=== PATIENT | male | born 1985 | race Caucasian/White ===

== ENCOUNTER 2017-10-19 09:16 | Emergency (ER) | payer OTHER ==
[~2017-10-19] VITALS: Ht 188 cm; Wt 117.9 kg
[~2017-10-19 09:16] MED LIST: IBUPROFEN400 MG PO; ULTRAM50 MG PO
[2017-10-19 09:35] LABS: HEMOGLOBIN 15.3 g/dL (14.1-18.0); LYMPH # 2.5 K/mm3 (0.7-4.5); LYMPH % 40.5 % (10-50)
--- NOTE | 2017-10-19 09:39 | Emergency Room Report ---
See Addendum History of Present Illness Time Seen by MD Bass24 Presenting Problem in Triage Pt arrived:Walked Presenting Problem:PT C/O LEFT FLANK PAIN THAT STARTED AROUND 0200AM. 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 N Clinical Suspician of Infection? N Mental Status: 1 - Regular (Normal Baseline) Sepsis Risk:Low Sepsis Risk Have you (or family members/close friends) recently traveled outside the [facility]? N If Yes, where/when: Have you had exposure to infectious disease within the past month? N TB? Other? 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 Reports acute onset of intermittent right flank pain plus "pinkish urine" since 0200 this AM. No fever, no n/v/d. Took two Ibuprofen earlier with minimal relief. States his dad had hx of calculi. He doesn't drink a lot of caffeine but drinks "flavored water". He is requesting pain relief. ALLERGIES Coded Allergies: No Known Allergies (10/19/17) Home Medications Reported Medications No Known Home Medications History Medical History General CAD? No Angina: No [place]: No Hypertension? No Hyperlipidemia? No CHF? No DVT? No PE? No COPD? No Asthma? No Anemia? No GERD? No Gastric ulcers? No GI Bleed? No Hernia? No Thyroid Problems? No Hypothyroidism? No CVA? No Seizures? No Diabetes? No Renal Insuffiency? No End Stage Renal Disease? No UTI? No Stones? No BPH? No GB Disease: No Nephritic Syndrome? No Asplenia? No Hepatitis? No Sickle Cell Disease? No Arthritis? No Migraines? No Cataracts? No Glaucoma? No MRSA? No HIV? No TB? No Anxiety? No Depression? No Cancer? No More? No Immunization Hx DT/Tetanus Unknown Surgical Hx Previous Surgery?Y RT KNEE TONSILS Social History Smoking Hx Smoker: Never Smoker Tobacco: No Alcohol Alcohol: No Review of Systems All Other Systems Reviewed and Negative Genitourinary see HPI. Physical Exam Vital Signs Vital Signs Date Time Temp Pulse Resp B/P Pulse O2 O2 Flow FiO2 Ox Delivery Rate 10/19 0934 16 10/19 0920 98.0 71 16 162/83 98 General Appearance normal appearance, WD/WN, no apparent distress (lying still on stretcher) Eye Exam - bilateral eye normal exam, bilateral eye PERRL, bilateral eye EOMI Neck normal inspection, non-tender, supple, full range of motion Respiratory Status Yes: trachea midline, chest symmetrical, non tender chest. No: respiratory distress, tender on palpation, use of accessory muscles, pain on inspiration, pain on expiration, productive cough, non productive cough. Lung Sounds bilateral: normal breath sounds, lungs clear. Cardiovascular normal exam, regular rate/rhythm, no peripheral edema, no gallop, no JVD, no murmur, no rub, normal peripheral pulses Gastrointestinal normal bowel sounds, normal exam, non tender, soft, no organomegaly, no pulsatile mass, no guarding, no rebound Back no CVA tenderness, bowel/bladder continent, gait normal, strt leg raising(L )-NML, strt leg raising(R)-NML Extremities non-tender, normal range of motion, normal inspection, normal capillary refill, no calf tenderness, no pedal edema Strength 5 Upper Ext (L), 5 Upper Ext (R), 5 Lower Ext (L), 5 Lower Ext (R) Neurologic alert, normal exam, no motor/sensory deficits, oriented x 3 Glascow Coma Scale Glascow Coma Scale Response Value EYE response: 4 Spontaneously 4 MOTOR response: 6 OBEYS 6 VERBAL response: 5 Oriented & Converses 5 Total 15 Skin intact, normal color, warm/dry, no rash cons.w/shingles Medical Decision Making LABS/Meds/Orders Pt receiving controlled substance in ED? Yes Walker was queried for this patient? Yes Reference #: [id number] Results/Orders Laboratory Tests 10/19/17 0935: Urine Color DK YELLOW, Urine Appearance CLOUDY, Urine pH 6.0, Ur Specific [place] >= 1.030, Urine Protein 1+ H, Urine Ketones NEGATIVE, Urine Blood 3+ H , Urine Nitrate NEGATIVE, Urine Bilirubin NEGATIVE, Urine Urobilinogen 0.2, Ur Leukocyte Esterase NEGATIVE, Urine RBC TNTC, Urine WBC OCC, Ur Squamous Epith Cells OCC, Urine Bacteria 2+, Urine Glucose NEGATIVE 10/19/1728: Sodium 141, Potassium 3.9, Chloride 106, Carbon Dioxide 25, BUN 8, Creatinine 1.1, Estimated Creat Clear 161, Estimated GFR (MDRD) 78, Glucose 101, Calcium 9.3, Total Bilirubin 0.5, AST 42 H, ALT 85 H, Alkaline Phosphatase 52, Total Protein 7.8, Albumin 4.1, Globulin 3.7 H, Albumin/Globulin Ratio 1.1, WBC 6.2, RBC 5.01, Hgb 15.3, Hct 43.7, MCV 87.2, RDW 13.3, Plt Count 248, MPV 6.7 L, Gran % 49.5, Gran # 3.1, Lymphocytes % 40.5, Monocytes % 6.2, Eosinophils % 3.1, Basophils % 0.8, Lymphocytes # 2.5, Monocytes # 0.4, Eosinophils # 0.2, Basophils # 0.1, PUBS MCHC 35.0, MCH 30.5 Current Medication Orders Sig/Stephen Start time Last Medication Dose Route Stop Time Status Admin Morphine Sulfate 4 MG ONCE ONE 10/19 1115 DC IV 10/19 1116 Ketorolac 0 .STK-MED ONE 10/19 931 DC Tromethamine .ROUTE Ondansetron HCl 0 .STK-MED ONE 10/19 931 DC .ROUTE Ketorolac 15 MG ONCE ONE 10/19 930 DC 10/19 Tromethamine IV 10/1934 Ondansetron HCl 4 MG ONCE ONE 10/19 930 DC 10/19 IV 10/19 931 0934 Sodium Chloride 10 ML PRN PRN 10/19 930 AC IV 10/20 924 Sodium Chloride 1,000 ML .Q1H1M 10/19 930 DC 10/19 IV 10/19 1030 0928 Sodium Chloride 10 ML PRN PRN 10/19 930 AC IV 10/20 09 Sodium Chloride 1,000 ML .STK-MED ONE 10/19 926 DC IV Orders Procedure Date/time Status DIET-NOTHING BY MOUTH 10/19 L Active CULTURE, URINE 10/[address] ABD/PELVIS REQ 10/19 924 Complete IV SALINE LOCK 10/19 924 Active URINALYSIS/COMPLETE 10/19 924 Complete CBC WITH AUTO DIFF 10/19 924 Complete CHEM 12 PROFILE 11/30 0924 Complete XRAY/CT/US XRAY/CT/US CT abdomen, pelvis CT interpretation by reviewed by me (report reviewed) Time results known: 1101 CT Results abnormal, 2-3 mm R ureteral calc w/ mild uropathy Departure Departure Time of Disposition 1101 Disposition DC Home or Self Care(routine) Clinical Impression Primary Impression: Right ureteral stone Condition STABLE Referrals Katt GRAY,Leonardo Sanderson MD,Arsenio Lerner MD,Michael (Family) Patient Instructions Kidney Stones -- Adult Additional Instructions filter urine; Rx Flomax, Lortab, Zofran; make an appointment for one to four days with urologist of choice, either Dr. Bolivar or Dr. Sanderson, see numbers listed. Discharge Counseling Counseled pt/family regarding diagnosis, test results, R/B of controlled subst., medications/RX, home care, follow up needs Prescriptions Current Visit Scripts Ondansetron (Zofran 4MG Odt) 4 MG PO Q6HP PRN NAUSEA AND VOMITING #10 ODT TAMSULOSIN HCL (Flomax) 0.4 MG PO QHS #10 CAP HYDROCODONE/ACETAMINOPHEN (Lortab 10-325 (generic) Tablet) 2 TAB PO Q6HP PRN pain #20 TAB ED Critical Care Critical Care No at 1116
--- NOTE | 2017-10-19 09:39 | Emergency Room Report ---
See Addendum History of Present Illness Time Seen by MD Bass24 Presenting Problem in Triage Pt arrived:Walked Presenting Problem:PT C/O LEFT FLANK PAIN THAT STARTED AROUND 0200AM. 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 N Clinical Suspician of Infection? N Mental Status: 1 - Regular (Normal Baseline) Sepsis Risk:Low Sepsis Risk Have you (or family members/close friends) recently traveled outside the [facility]? N If Yes, where/when: Have you had exposure to infectious disease within the past month? N TB? Other? 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 Reports acute onset of intermittent right flank pain plus "pinkish urine" since 0200 this AM. No fever, no n/v/d. Took two Ibuprofen earlier with minimal relief. States his dad had hx of calculi. He doesn't drink a lot of caffeine but drinks "flavored water". He is requesting pain relief. ALLERGIES Coded Allergies: No Known Allergies (10/19/17) Home Medications Reported Medications No Known Home Medications History Medical History General CAD? No Angina: No [place]: No Hypertension? No Hyperlipidemia? No CHF? No DVT? No PE? No COPD? No Asthma? No Anemia? No GERD? No Gastric ulcers? No GI Bleed? No Hernia? No Thyroid Problems? No Hypothyroidism? No CVA? No Seizures? No Diabetes? No Renal Insuffiency? No End Stage Renal Disease? No UTI? No Stones? No BPH? No GB Disease: No Nephritic Syndrome? No Asplenia? No Hepatitis? No Sickle Cell Disease? No Arthritis? No Migraines? No Cataracts? No Glaucoma? No MRSA? No HIV? No TB? No Anxiety? No Depression? No Cancer? No More? No Immunization Hx DT/Tetanus Unknown Surgical Hx Previous Surgery?Y RT KNEE TONSILS Social History Smoking Hx Smoker: Never Smoker Tobacco: No Alcohol Alcohol: No Review of Systems All Other Systems Reviewed and Negative Genitourinary see HPI. Physical Exam Vital Signs Vital Signs Date Time Temp Pulse Resp B/P Pulse O2 O2 Flow FiO2 Ox Delivery Rate 10/19 0934 16 10/19 0920 98.0 71 16 162/83 98 General Appearance normal appearance, WD/WN, no apparent distress (lying still on stretcher) Eye Exam - bilateral eye normal exam, bilateral eye PERRL, bilateral eye EOMI Neck normal inspection, non-tender, supple, full range of motion Respiratory Status Yes: trachea midline, chest symmetrical, non tender chest. No: respiratory distress, tender on palpation, use of accessory muscles, pain on inspiration, pain on expiration, productive cough, non productive cough. Lung Sounds bilateral: normal breath sounds, lungs clear. Cardiovascular normal exam, regular rate/rhythm, no peripheral edema, no gallop, no JVD, no murmur, no rub, normal peripheral pulses Gastrointestinal normal bowel sounds, normal exam, non tender, soft, no organomegaly, no pulsatile mass, no guarding, no rebound Back no CVA tenderness, bowel/bladder continent, gait normal, strt leg raising(L )-NML, strt leg raising(R)-NML Extremities non-tender, normal range of motion, normal inspection, normal capillary refill, no calf tenderness, no pedal edema Strength 5 Upper Ext (L), 5 Upper Ext (R), 5 Lower Ext (L), 5 Lower Ext (R) Neurologic alert, normal exam, no motor/sensory deficits, oriented x 3 Glascow Coma Scale Glascow Coma Scale Response Value EYE response: 4 Spontaneously 4 MOTOR response: 6 OBEYS 6 VERBAL response: 5 Oriented & Converses 5 Total 15 Skin intact, normal color, warm/dry, no rash cons.w/shingles Medical Decision Making LABS/Meds/Orders Pt receiving controlled substance in ED? Yes Walker was queried for this patient? Yes Reference #: [id number] Results/Orders Laboratory Tests 10/19/17 0935: Urine Color DK YELLOW, Urine Appearance CLOUDY, Urine pH 6.0, Ur Specific [place] >= 1.030, Urine Protein 1+ H, Urine Ketones NEGATIVE, Urine Blood 3+ H , Urine Nitrate NEGATIVE, Urine Bilirubin NEGATIVE, Urine Urobilinogen 0.2, Ur Leukocyte Esterase NEGATIVE, Urine RBC TNTC, Urine WBC OCC, Ur Squamous Epith Cells OCC, Urine Bacteria 2+, Urine Glucose NEGATIVE 10/19/1728: Sodium 141, Potassium 3.9, Chloride 106, Carbon Dioxide 25, BUN 8, Creatinine 1.1, Estimated Creat Clear 161, Estimated GFR (MDRD) 78, Glucose 101, Calcium 9.3, Total Bilirubin 0.5, AST 42 H, ALT 85 H, Alkaline Phosphatase 52, Total Protein 7.8, Albumin 4.1, Globulin 3.7 H, Albumin/Globulin Ratio 1.1, WBC 6.2, RBC 5.01, Hgb 15.3, Hct 43.7, MCV 87.2, RDW 13.3, Plt Count 248, MPV 6.7 L, Gran % 49.5, Gran # 3.1, Lymphocytes % 40.5, Monocytes % 6.2, Eosinophils % 3.1, Basophils % 0.8, Lymphocytes # 2.5, Monocytes # 0.4, Eosinophils # 0.2, Basophils # 0.1, PUBS MCHC 35.0, MCH 30.5 Current Medication Orders Sig/Stephen Start time Last Medication Dose Route Stop Time Status Admin Morphine Sulfate 4 MG ONCE ONE 10/19 1115 DC IV 10/19 1116 Ketorolac 0 .STK-MED ONE 10/19 931 DC Tromethamine .ROUTE Ondansetron HCl 0 .STK-MED ONE 10/19 931 DC .ROUTE Ketorolac 15 MG ONCE ONE 10/19 930 DC 10/19 Tromethamine IV 10/1934 Ondansetron HCl 4 MG ONCE ONE 10/19 930 DC 10/19 IV 10/19 931 0934 Sodium Chloride 10 ML PRN PRN 10/19 930 AC IV 10/20 924 Sodium Chloride 1,000 ML .Q1H1M 10/19 930 DC 10/19 IV 10/19 1030 0928 Sodium Chloride 10 ML PRN PRN 10/19 930 AC IV 10/20 09 Sodium Chloride 1,000 ML .STK-MED ONE 10/19 926 DC IV Orders Procedure Date/time Status DIET-NOTHING BY MOUTH 10/19 L Active CULTURE, URINE 10/[address] ABD/PELVIS REQ 10/19 924 Complete IV SALINE LOCK 10/19 924 Active URINALYSIS/COMPLETE 10/19 924 Complete CBC WITH AUTO DIFF 10/19 924 Complete CHEM 12 PROFILE 11/30 0924 Complete XRAY/CT/US XRAY/CT/US CT abdomen, pelvis CT interpretation by reviewed by me (report reviewed) Time results known: 1101 CT Results abnormal, 2-3 mm R ureteral calc w/ mild uropathy Departure Departure Time of Disposition 1101 Disposition DC Home or Self Care(routine) Clinical Impression Primary Impression: Right ureteral stone Condition STABLE Referrals Katt GRAY,Leonardo Sanderson MD,Arsenio Lenrer MD,Michael (Family) Patient Instructions Kidney Stones -- Adult Additional Instructions filter urine; Rx Flomax, Lortab, Zofran; make an appointment for one to four days with urologist of choice, either Dr. Bolivar or Dr. Sanderson, see numbers listed. Discharge Counseling Counseled pt/family regarding diagnosis, test results, R/B of controlled subst., medications/RX, home care, follow up needs Prescriptions Current Visit Scripts Ondansetron (Zofran 4MG Odt) 4 MG PO Q6HP PRN NAUSEA AND VOMITING #10 ODT TAMSULOSIN HCL (Flomax) 0.4 MG PO QHS #10 CAP HYDROCODONE/ACETAMINOPHEN (Lortab 10-325 (generic) Tablet) 2 TAB PO Q6HP PRN pain #20 TAB ED Critical Care Critical Care No at 1116
--- OUTSIDE RECORDS SUMMARY | 2017-10-19 10:04 | External Medical Summary Rpt ---
Author Author [facility] Organization [facility] Address Unknown Phone Unavailable Care Team Providers Care Hatchery Attendant Name Role Phone PHY, UNKNOWN PCP Unavailable Encounter [facility] [id number] Date(s): 08/22/16 - 08/22/16 [facility] [address] [place] [place] [address]- Attending Physician: HANNAH BRUNNER MD Admitting Physician: HANNAH BRUNNER MD Referring Physician: HANNAH BRUNNER MD Reason for Visit CALCULUS OF URETER Vital Signs No data available for this section Problem List Condition Effective Status Health Informant Dates Status asthma as a Active child(Confir med) Kidney Active stones(Confi rmed) KNEE Active SX(Confirmed ) Allergies, Adverse Reactions, Alerts No Known Medication Allergies Medications No data available for this section Results No data available for this section Immunizations No data available for this section Procedures No data available for this section Social History Social History Response Type Smoking Status Never smoker Assessment and Plan No data available for this section Hospital Discharge Instructions No data available for this section
--- OUTSIDE RECORDS SUMMARY | 2017-10-19 10:04 | External Medical Summary Rpt ---
Author Author [facility] Organization [facility] Address Unknown Phone Unavailable Care Team Providers Care Quality Compliance Manager Name Role Phone PHY, UNKNOWN PCP Unavailable Encounter [facility]MI [facility] [id number] Date(s): 08/22/16 - 08/22/16 [facility] [address] [place] [address]- Discharge Disposition: OP Self Care or Home Attending Physician: HANNAH BRUNNER MD Admitting Physician: [...]
--- OUTSIDE RECORDS SUMMARY | 2017-10-19 10:04 | External Medical Summary Rpt ---
Author Author [facility] Organization [facility] Address Unknown Phone Unavailable Care Team Providers Care Cloth Checker Name Role Phone MAXIMUS, MD PCP Unavailable Encounter SAMMI [facility] [id number] Date(s): 08/05/16 - 08/05/16 [facility] [address] [place] [address]- [phone] Discharge Diagnosis: Right flank pain Discharge Diagnosis: Kidney stone Discharge Diagnosis: Dysuria Discharge Disposition: OP Self Care or Home Attending Physician: CHRISTIAN WEBB MD Admitting Physician: CHRISTIAN WEBB MD Referring Physician: SELF, REFERRED (REF), -UNK Reason for Visit KIDNEY STONE Vital Signs Most recent 1 to oldest [Reference Range]: Temperature Oral Source (08/05/16 10:52 AM) Temperature Fahrenheit Mode (08/05/16 10:52 AM) Temperature, 98.3 Deg F Fahrenheit (08/05/16 10:52 AM) [96.8-99.7 Deg F] Clinical 36.8 Deg C Temperature, (08/05/16 10:52 AM) C Peripheral 72 bpm Pulse Rate (08/05/16 10:52 AM) [60-100 bpm] Respiratory 18 Breaths/Min Rate [14-20 (08/05/16 10:52 AM) Breaths/Min] Blood 141/66 mmHg Pressure *HI* [90-140/60-9 (08/05/16 10:52 AM) 0 mmHg] Oxygen 96 % Saturation (08/05/16 10:52 AM) [94-100 %] Oxygen Room air Therapy Mode (08/05/16 10:52 AM) Problem List Condition Effective Status Health Informant Dates Status Kidney Active stones(Confi rmed) KNEE Active SX(Confirmed ) Allergies, Adverse Reactions, Alerts No Known Medication Allergies Medications acetaminophen-oxyCODONE (Percocet 5/325 oral tablet)1 Tab, Oral, Every 6 Hours, 5 Day(s), As Needed, for pain, Refills: 0Ordering provider: CHRISTIAN WEBB MD ondansetron (Zofran ODT 4 mg oral tablet, disintegrating)1 Tab, Oral, Every 6 Hours, Refills: 0Ordering provider: LARRY ABURTO PA-C tamsulosin (Flomax 0.4 mg oral capsule)1 Cap, Oral, Every Day, Refills: 0Ordering provider: LARRY ABURTO PA-C Results GENERAL CHEMISTRY Most recent 1 to oldest [Reference Range]: Sodium Level 140 mmol/L [136-145 (08/05/16 11:48 AM) mmol/L] Potassium 3.8 mmol/L Level (08/05/16 11:48 AM) [3.5-5.1 mmol/L] Chloride 105 mmol/L Level (08/05/16 11:48 AM) [98-107 mmol/L] Carbon 26 mmol/L Dioxide (08/05/16 11:48 AM) Level [21-32 mmol/L] Anion Gap 13 [9-20] (08/05/16 11:48 AM) Glucose 122 mg/dL Level *HI* [74-106 (08/05/16 11:48 AM) mg/dL] Blood Urea 13 mg/dL Nitrogen (08/05/16 11:48 AM) [7-18 mg/dL] Creatinine 1.10 mg/dL Level (08/05/16 11:48 AM) [0.80-1.30 mg/dL] eGFR 95 mL/min/1.73m2 [>=60 (08/05/16 11:48 AM) mL/min/1.73m 2] eGFR 78 mL/min/1.73m2 NonAfrican (08/05/16 11:48 AM) [>=60 mL/min/1.73m 2] Bun/Creatini 11.8 ne (08/05/16 11:48 AM) [8.0-20.0] Calcium 9.6 mg/dL Level (08/05/16 11:48 AM) [8.5-10.1 mg/dL] Protein 7.7 Gram/dL Total (08/05/16 11:48 AM) [6.4-8.5 Gram/dL] Albumin 4.2 Gram/dL Level (08/05/16 11:48 AM) [3.4-5.0 Gram/dL] Globulin 3.5 Gram/dL [1.5-4.5 (08/05/16 11:48 AM) Gram/dL] A/G Ratio 1.2 [1.1-2.5] (08/05/16 11:48 AM) Bilirubin 0.4 mg/dL Total (08/05/16 11:48 AM) [0.2-1.0 mg/dL] Alk Phos 44 Units/Liter [46-116 *LOW* Units/Liter] (08/05/16 11:48 AM) AST [15-37 31 Units/Liter Units/Liter] (08/05/16 11:48 AM) ALT [12-78 66 Units/Liter Units/Liter] (08/05/16 11:48 AM) Lipase Level 128 Units/Liter [73-393 (08/05/16 11:48 AM) Units/Liter] CRP [0.0-0.9 <0.2 mg/dL mg/dL] (08/05/16 12:20 PM) Uric Acid 7.1 mg/dL [3.5-7.2 (08/05/16 12:20 PM) mg/dL] HEMATOLOGY Most recent 1 to oldest [Reference Range]: WBC 6.4 K/uL [3.9-10.0 (08/05/16 11:48 AM) K/uL] RBC 4.79 Million/uL [4.63-6.08 (08/05/16 11:48 AM) Million/uL] Hgb 14.9 Gram/dL [13.7-17.5 (08/05/16 11:48 AM) Gram/dL] Hct [37-51 41 % %] (08/05/16 12:20 PM) Hct 40.9 % [40.1-51.0 (08/05/16 11:48 AM) %] MCV 85.4 fL [79.0-94.8 (08/05/16 11:48 AM) fL] MCH 31.1 pg [25.6-32.2 (08/05/16 11:48 AM) pg] MCHC 36.4 Gram/dL [32.2-36.5 (08/05/16 11:48 AM) Gram/dL] Platelet 208 K/uL Count (08/05/16 11:48 AM) [163-369 K/uL] MPV 9.1 fL [9.4-12.4 *LOW* fL] (08/05/16 11:48 AM) RDW 12.7 % [11.6-14.4 (08/05/16 11:48 AM) %] Neut % 52.0 % [34.0-71.0 (08/05/16 11:48 AM) %] Neut # 3.35 K/uL [1.56-6.13 (08/05/16 11:48 AM) K/uL] Lymph % 36.6 % [19.0-53.0 (08/05/16 11:48 AM) %] Lymph # 2.36 K/uL [1.18-3.74 (08/05/16 11:48 AM) K/uL] [place] % 8.1 % [4.7-12.5 %] (08/05/16 11:48 AM) [place] # 0.52 K/uL [0.24-0.82 (08/05/16 11:48 AM) K/uL] Eos % 2.8 % [1.0-7.0 %] (08/05/16 11:48 AM) Eos # 0.18 K/uL [0.04-0.54 (08/05/16 11:48 AM) K/uL] Baso % 0.5 % [0.0-1.0 %] (08/05/16 11:48 AM) Baso # 0.03 K/uL [0.01-0.08 (08/05/16 11:48 AM) K/uL] Sed Rate Man 3 mm/Hr [0-15 (08/05/16 12:20 PM) mm/Hr] Slide Review No (08/05/16 11:48 AM) URINALYSIS Most recent 1 to oldest [Reference Range]: Urine Type U CleanCatch (08/05/16 1:02 PM) Urine Color Yellow *NA* (08/05/16 1:02 PM) Urine Clear Appearance (08/05/16 1:02 PM) Urine 1.017 Specific (08/05/16 1:02 PM) [place] [1.005-1.030 ] Urine pH 6.0 Dipstick (08/05/16 1:02 PM) [6.0-8.0] Urine Negative Leukocyte (08/05/16 1:02 PM) Esterase [Negative] Urine Negative Nitrite (08/05/16 1:02 PM) [Negative] Urine Negative Protein (08/05/16 1:02 PM) Dipstick [Negative] Urine Negative Glucose (08/05/16 1:02 PM) Dipstick [Negative] Urine Negative Ketones (08/05/16 1:02 PM) Dipstick [Negative] Urine 0.2 EU/dL Urobilinogen (08/05/16 1:02 PM) Dipstick Urine Negative Bilirubin (08/05/16 1:02 PM) Dipstick [Negative] Urine Blood Large Dipstick *ABN* [Negative] (08/05/16 1:02 PM) Ur RBC [None 50-100 /HPF Seen /HPF] *ABN* (08/05/16 1:02 PM) Ur WBC [None 0-2 /HPF Seen /HPF] (08/05/16 1:02 PM) Ur Bacteria None Seen [None Seen] (08/05/16 1:02 PM) Ur Mucous 3+ *ABN* (08/05/16 1:02 PM) Ur Squamous 0-2 /HPF Epithelial (08/05/16 1:02 PM) Cells LAB MISCELLANEOUS Most recent 1 to oldest [Reference Range]: MISC Test ANAESN Name *NA* (08/05/16 12:20 PM) Performing [facility] Lab *NA* (08/05/16 12:20 PM) Immunizations No data available for this section Procedures No data available for this section Social History Social History Response Type Smoking Status Never smoker Assessment and Plan No data available for this section Hospital Discharge Instructions Patient EducationKidney Stones
--- OUTSIDE RECORDS SUMMARY | 2017-10-19 10:04 | External Medical Summary Rpt ---
Author Author [facility] Organization [facility] Address Unknown Phone Unavailable Care Team Providers Care Student Financial Aid Manager Name Role Phone PHY, UNKNOWN PCP Unavailable Encounter [facility]MI [facility] [id number] Date(s): 08/22/16 - 08/22/16 [facility] [address] [place] [address]- Discharge Disposition: OP Self Care or Home [...]
--- OUTSIDE RECORDS SUMMARY | 2017-10-19 10:04 | External Medical Summary Rpt ---
Author Author [facility] Organization [facility] Address Unknown Phone Unavailable Care Team Providers Care Acid Tester Name Role Phone SOCO, MAXIMUS CORRAL DR PCP Unavailable Encounter Charlie [facility] [id number] Date(s): 08/08/16 - 08/10/16 [facility] [address] [place] [address]- [phone] Discharge Disposition: OP Self Care or Home Attending Physician: HANNAH BRUNNER MD Admitting Physician: HANNAH BRUNNER MD Referring Physician: HANNAH BRUNNER MD Reason for Visit CALCULUS OF URETER Vital Signs Most recent 1 2 3 to oldest [Reference Range]: Temperature Temporal artery Temporal artery Temporal artery Source scanning (08/10/16 scanning (08/10/16 scanning (08/10/16 1:41 PM) 12:05 PM) 11:21 AM) Temperature Fahrenheit Fahrenheit Fahrenheit Mode (08/10/16 1:41 PM) (08/10/16 12:05 (08/10/16 11:21 PM) AM) Temperature, 97.0 Deg F 97.9 Deg F 97.5 Deg F Fahrenheit (08/10/16 1:41 PM) (08/10/16 12:05 (08/10/16 11:21 [96.8-99.7 PM) AM) Deg F] Clinical 36.1 Deg C 36.8 Deg C Temperature, (08/10/16 1:41 PM) (08/10/16 8:38 AM) C Pulse Rhythm Regular (08/10/16 8:38 AM) Peripheral 84 bpm Pulse Rate (08/10/16 8:38 AM) [60-100 bpm] Heart Rate 72 bpm 73 bpm 67 bpm Monitored (08/10/16 1:41 PM) (08/10/16 1:30 PM) (08/10/16 1:00 PM) [60-100 bpm] Respiratory 16 Breaths/Min 17 Breaths/Min 16 Breaths/Min Rate [14-20 (08/10/16 1:41 PM) (08/10/16 1:30 PM) (08/10/16 1:00 PM) Breaths/Min] Blood Non-Invasive BP Pressure Device (08/10/16 Source 8:38 AM) Blood 119/80 mmHg 125/74 mmHg 127/77 mmHg Pressure (08/10/16 1:41 PM) (08/10/16 1:30 PM) (08/10/16 1:00 PM) [90-140/60-9 0 mmHg] Mean 88 88 (08/10/16 12:45 88 (08/10/16 12:25 Arterial (08/10/16 1:30 PM) PM) PM) Pressure (MAP)-BMDI Oxygen 94 % 93 % 93 % Saturation (08/10/16 1:41 PM) *LOW* *LOW* [94-100 %] (08/10/16 1:30 PM) (08/10/16 1:00 PM) Oxygen Room air Room air, Room air, Therapy Mode (08/10/16 1:41 PM) Other: Other: (08/10/16 1:30 PM) (08/10/16 1:00 PM) Problem List Condition Effective Status Health Informant Dates Status asthma as a Active child(Confir med) Kidney Active stones(Confi rmed) KNEE Active SX(Confirmed ) Allergies, Adverse Reactions, Alerts No Known Medication Allergies Medications No data available for this section Results No data available for this section Immunizations No data available for this section Procedures Procedure Date Related Body Site Diagnosis right knee acl repair Social History Social History Response Type Smoking Status Never smoker Assessment and Plan No data available for this section Hospital Discharge Instructions No data available for this section
--- OUTSIDE RECORDS SUMMARY | 2017-10-19 10:04 | External Medical Summary Rpt ---
Author Author Charlie [facility] Organization [facility] Address Unknown Phone Unavailable Care Team Providers Care Satellite Instruction Facilitator Name Role Phone MAXIMUS, MD PCP Unavailable Encounter SAMMI [facility] [id number] Date(s): 08/05/16 - 08/05/16 [facility] [address] [place] [address]- Discharge Diagnosis: Right flank pain Discharge Diagnosis: [...] 2.36 K/uL [1.18-3.74 (08/05/16 11:48 AM) K/uL] Holmes % 8.1 % [4.7-12.5 %] (08/05/16 11:48 AM) Holmes # 0.52 K/uL [0.24-0.82 (08/05/16 11:48 AM) [...] PM) Urine 1.017 Specific (08/05/16 1:02 PM) [facility] [1.005-1.030 ] Urine pH 6.0 Dipstick (08/05/16 [...]
--- OUTSIDE RECORDS SUMMARY | 2017-10-19 10:04 | External Medical Summary Rpt ---
Author Author Charlie [facility] Organization [facility] Address Unknown Phone Unavailable Care Team Providers Care Computer Repair Instructor Name Role Phone Kathy SARKAR PCP [phone] Encounter SAMMI CURTIS [id number] Date(s): 09/26/16 - 09/26/16 [facility] [address] [place] [address]- [phone] Discharge Disposition: OP Self Care or Home Attending Physician: HANNAH BRUNNER MD Admitting Physician: HANNAH BRUNNER MD Referring Physician: HANNAH BRUNNER MD Reason for Visit No data available for this section Vital Signs No data available for this [...]
--- OUTSIDE RECORDS SUMMARY | 2017-10-19 10:04 | External Medical Summary Rpt ---
Author Author [facility] Organization [facility] Address Unknown Phone Unavailable Care Team Providers Care Rehabilitation Physician Name Role Phone PHY, UNKNOWN PCP Unavailable Encounter [facility] [id number] Date(s): 08/22/16 - 08/22/16 [facility] [address] [place] [address]- Attending Physician: HANNAH BRUNNER MD Admitting Physician: [...]
--- OUTSIDE RECORDS SUMMARY | 2017-10-19 10:04 | External Medical Summary Rpt ---
Author Author Charlie [facility] Organization [facility] Address Unknown Phone Unavailable Care Team Providers Care Irrigation Worker Name Role Phone Kathy SARKAR PCP [phone] Encounter SAMMI CURTIS [id number] Date(s): 09/26/16 - 09/26/16 [facility] [address] [place] [address]- Discharge Disposition: OP Self Care or Home [...]
--- OUTSIDE RECORDS SUMMARY | 2017-10-19 10:04 | External Medical Summary Rpt ---
Author Author [facility] Organization [facility] Address Unknown Phone Unavailable Care Team Providers Care Electrical Maintenance Worker Name Role Phone SOCO, MAXIMUS CORRAL DR PCP Unavailable Encounter Charlie [facility] [id number] Date(s): 08/08/16 - 08/10/16 [facility] [address] [place] [address]- [phone] Discharge Disposition: OP Self Care or Home [...]
--- OUTSIDE RECORDS SUMMARY | 2017-10-19 10:05 | External Medical Summary Rpt | CCD ---
Author Author [facility] Organization [facility] Address Unknown Phone Unavailable Purpose Continuity of Care Document - through 2016
--- OUTSIDE RECORDS SUMMARY | 2017-10-19 10:05 | External Medical Summary Rpt | CCD ---
Demographics Preferred Language [place]ine[place] Marital Status Unknown Latter Day Affiliation Unknown Race Unknown Ethnic Group Unknown Author Author , NANCY CRUZ Address Unknown Phone Immunization No patient found.
--- OUTSIDE RECORDS SUMMARY | 2017-10-19 10:05 | External Medical Summary Rpt | CCD ---
Author Author , NANCY Organization [facility] Address Unknown Phone [email or web address] Purpose Continuity of Care Document - 10-19-2017 through 2016 Problems Code Diagnosis DOS Provider Status R10.9 UNSPECIFIED ABDOMINAL PAIN S20.219A CONTUSION OF UNSPECIFIED FRONT WALL OF THORAX, INIT ENCNTR Z87.442 PERSONAL HISTORY OF URINARY CALCULI Results Labs Lab Lab Date Result Refere Interp Status Commen Order Detail nces retati t Range on CBC w auto diff (10-19-2017 09:28) Automat 2 = 0.1 0-0.2 complet ed 017 K/MM3 ed blood 09:28 basophi l count (count/ vo Baso % = 0.8 % 0.1-2.0 complet 017 ed 09:28 Automat = 3.1 % 0.1-12. complet ed 017 0 ed blood 09:28 eosinop hils/10 0 leukocy t Blood = 3.1 1.3-8.0 complet granulo 017 K/mm3 ed cytes 09:28 automat ed count (numb Granulo = 49.5 37.0-80 complet cyte 017 % .0 ed percent 09:28 age Blood = 43.7 42.0-52 complet hematoc 017 % .0 ed rit 09:28 (volume fractio n) Blood = 15.3 14.1-18 complet hemoglo 017 g/dL .0 ed bin 09:28 measure ment (mass/v olum Absolut = 2.5 0.7-4.5 complet e 017 K/mm3 ed lymphoc 09:28 yte count Lymphoc = 40.5 10-50 complet yte 017 % ed count, 09:28 blood, automat ed Mean = 30.5 27-31.2 complet corpusc 017 pg ed ular 09:28 hemoglo bin ([facility]) determ Automat 10-19-2 = 35.0 31.8-35 complet ed 017 g/dl .4 ed erythro 09:28 cyte mean corpusc ular h Automat 10-19-2 = 87.2 82.2-97 complet ed 017 fl .8 ed erythro 09:28 cyte mean corpusc ular v Absolut 10-19-2 = 0.4 0.1-1.0 complet e 017 K/mm3 ed monocyt 09:28 e count L[place] % 10-19-2 = 6.2 % 1.7-9.3 complet 017 ed 09:28 Automat 10-19-2 = 6.7 7.4-10. complet ed 017 fl 4 ed blood 09:28 platele t mean volume grisel Blood = 248 142-424 complet platele 017 K/mm3 ed t count 09:28 Red 10-19-2 = 5.01 4.6-6.2 complet blood 017 M/mm3 ed cell 09:28 count Automat 2 = 13.3 11.5-17 complet ed 017 % .5 ed erythro 09:28 cyte distrib ution width Blood 10-19-2 = 6.2 4.8-10. complet leukocy 017 K/MM3 8 ed julien 09:28 count (number /volume ) Automat 10-19-2 = 0.2 0.0-0.4 complet ed 017 K/mm3 ed blood 09:28 eosinop hil count Comprehensive metabolic panel (10-19-2017 09:28) Serum 10-19-2 = 1.1 1.1-1.8 complet or 017 ed plasma 09:28 albumin /globul in mass ra Serum 10-19-2 = 4.1 3.4-5.0 complet or 017 gm/dL ed plasma 09:28 albumin measure ment (mas Serum 10-19-2 = 52 46-116 complet or 017 U/L ed plasma 09:28 alkalin e phospha tase grisel Serum 10-19-2 = 0.5 0.2-1.0 complet or 017 mg/dL ed plasma 09:28 total bilirub in measure m Serum 10-19-2 = 8 7-18 complet or 017 mg/dL ed plasma 09:28 urea nitroge n measure men Serum 11-30-2 = 9.3 8.5-10. complet or 017 mg/dL 1 ed plasma 09:28 calcium measure ment (mas Serum 30-2 = 106 98-107 complet or 017 mmoL/L ed plasma 09:28 chlorid e measure ment (mo Carbon 30-2 = 25 21.0-32 complet dioxide 017 mmoL/L .0 ed 09:28 measure ment Serum 11-30-2 = 1.1 0.70-1. complet or 017 mg/dL 30 ed plasma 09:28 creatin ine measure ment ( Estimat 10-19-2 = 161 50-200 complet ion of 017 ML/MIN ed creatin 09:28 ine renal clearan ce Estimat 10-19-2 = 78 >60 complet ed 017 ML/MIN ed glomeru 09:28 lar filtrat ion rate (GF Comment: REFERENCE RANGE: >60 ML/MIN/1.73 SQUARE METERS Comment: If this patient is -Malawian, then multiply the Comment: result by 1.210. Serum -30-2 = 3.7 1.3-3.2 complet globuli 017 gm/dL ed n 09:28 measure ment (mass/v olume) Serum -30-2 = 101 74-106 complet or 017 mg/dL ed plasma 09:28 glucose measure ment (mas Serum 10-19-2 = 3.9 3.5-5.1 complet potassi 017 mmoL/L ed um 09:28 measure ment Serum 11-30-2 = 141 136-145 complet sodium 017 mmoL/L ed measure 09:28 ment Serum 11-30-2 = 42 15-37 complet or 017 U/L ed plasma 09:28 asparta te aminotr ansfera ALT -30-2 = 85 12-78 complet (SGPT) 017 U/L ed ser/evans 09:28 s Protein 11-30-2 = 7.8 6.4-8.2 complet total 017 gm/dL ed ser/evans 09:28 s
--- OUTSIDE RECORDS SUMMARY | 2017-10-19 10:05 | External Medical Summary Rpt ---
Author Author [facility] [employer], [facility] [employer] Organization [facility] [employer] Address Unknown Phone Unavailable Results Comprehensive metabolic 2000 panel in Serum or Plasma Observa Value Referen Units Interpr Notes Date tion ce etation Range Albumin/G 1.1 - 1.8 No Normal No Oct 19 lobulin informati informati 2016 9:28 [Mass on in on in AM ratio] in source source Serum or data data Plasma Albumin 3.4 - 5.0 gm/dL Normal No Oct 19 [Mass/vol informati 2016 9:28 ume] in on in AM Serum or source Plasma data Alkaline 46 - 116 U/L Normal No Oct 19 phosphata informati 2016 9:28 se on in AM [Enzymati source c data activity/ volume] in Serum or Plasma Bilirubin 0.2 - 1.0 mg/dL Normal No Oct 19 .total informati 2016 9:28 [Mass/vol on in AM ume] in source Serum or data Plasma Urea 7 - 18 mg/dL Normal No Oct 19 nitrogen informati 2016 9:28 [Mass/vol on in AM ume] in source Serum or data Plasma Calcium 8.5 - mg/dL Normal No Oct 19 [Mass/vol 10.1 informati 2017 9:28 ume] in on in AM Serum or source Plasma data Chloride 98 - 107 mmoL/L Normal No Oct 19 [Moles/vo informati 2016 9:28 lume] in on in AM Serum or source Plasma data Carbon 21.0 - mmoL/L Normal No Oct 19 dioxide, 32.0 informati 2017 9:28 total on in AM [Moles/vo source lume] in data Serum or Plasma Creatinin 0.70 - mg/dL Normal No Oct 19 e 1.30 informati 2017 9:28 [Mass/vol on in AM ume] in source Serum or data Plasma Creatinin 50 - 200 ML/MIN Normal No Oct 19 e renal informati 2017 9:28 clearance on in AM source predicted data by Cockcroft -Gault formula Estimated >60 ML/MIN No REFERENCE Oct 19 informati RANGE: 2017 9:28 glomerula on in >60 AM r source ML/MIN/1. filtratio data 73 SQUARE n rate METERSIf (GF this patient is -A merican, then multiply theresult by 1.210. Globulin 1.3 - 3.2 gm/dL High No Oct 19 [Mass/vol informati 2016 9:28 ume] in on in AM Serum source data Glucose 74 - 106 mg/dL Normal Oct 19 [Mass/vol informati 2016 9:28 ume] in on in AM Serum or source Plasma data Potassium 3.5 - 5.1 mmoL/L Normal No Oct 19 informati 2016 9:28 [Moles/vo on in AM lume] in source Serum or data Plasma Sodium 136 - 145 mmoL/L Normal No Oct 19 [Moles/vo informati 2016 9:28 lume] in on in AM Serum or source Plasma data Aspartate 15 - 37 U/L High Oct 19 informati 2016 9:28 aminotran on in AM sferase source [Enzymati data c activity/ volume] in Serum or Plasma Alanine 12 - 78 U/L High Oct 19 aminotran informati 2016 9:28 sferase on in AM [Enzymati source c data activity/ volume] in Serum or Plasma Protein 6.4 - 8.2 gm/dL Normal Oct 19 [Mass/vol informati 2016 9:28 ume] in on in AM Serum or source Plasma data CBC W Auto Differential panel in Blood Observa Value Referen Units Interpr Notes Date tion ce etation Range Basophils 0 - 0.2 K/MM3 Normal No Oct 19 informati 2016 9:28 [#/volume on in AM ] in source Blood by data Automated count Basophils 0.1 - 2.0 % Normal No Oct 19 / informati 2016 9:28 leukocyte on in AM s in source Blood by data Automated count Eosinophi 0.0 - 0.4 K/mm3 Normal No Oct 19 ls informati 2016 9:28 [#/volume on in AM ] in source Blood by data Automated count Eosinophi 0.1 - % Normal No Oct 19 ls/100 12.0 informati 2016 9:28 leukocyte on in AM s in source Blood by data Automated count Granulocy 1.3 - 8.0 K/mm3 Normal No Oct 19 julien informati 2017 9:28 [#/volume on in AM ] in source Blood by data Automated count Granulocy 37.0 - % Normal No Oct 19 julien/100 80.0 informati 2017 9:28 leukocyte on in AM s in source Blood by data Automated count Hematocri 42.0 - % Normal No Oct 19 t [Volume 52.0 informati 2017 9:28 on in AM Fraction] source of Blood data Hemoglobi 14.1 - g/dL Normal No Oct 19 n 18.0 informati 2017 9:28 [Mass/vol on in AM ume] in source Blood data Lymphocyt 0.7 - 4.5 K/mm3 Normal No Oct 19 es informati 2017 9:28 [#/volume on in AM ] in source Unspecifi data ed specimen by Automated count Lymphocyt 10 - 50 % Normal No Oct 19 es informati 2016 9:28 [#/volume on in AM ] in source Unspecifi data ed specimen by Automated count Erythrocy 27 - 31.2 pg Normal No Oct 19 te mean informati 2016 9:28 corpuscul on in AM ar source hemoglobi data n [Entitic mass] Erythrocy 31.8 - g/dl Normal No Oct 19 te mean 35.4 informati 2017 9:28 corpuscul on in AM ar source hemoglobi data n concentra tion [Mass/vol ume] by Automated count Erythrocy 82.2 - fl Normal No Oct 19 te mean 97.8 informati 2017 9:28 corpuscul on in AM ar volume source [Entitic data volume] by Automated count Monocytes 0.1 - 1.0 K/mm3 Normal No Oct 19 informati 2016 9:28 [#/volume on in AM ] in source Blood by data Automated count Monocytes 1.7 - 9.3 % Normal No Oct 19 / informati 2017 9:28 leukocyte on in AM s in source Blood by data Automated count Platelet 7.4 - fl Low No Oct 19 mean 10.4 informati 2017 9:28 volume on in AM [Entitic source volume] data in Blood by Automated count Platelets 142 - 424 K/mm3 Normal No Oct 19 informati 2017 9:28 [#/volume on in AM ] in source Blood data Erythrocy 4.6 - 6.2 M/mm3 Normal No Oct 19 julien informati 2016 9:28 [#/volume on in AM ] in source Amniotic data fluid Erythrocy 11.5 - % Normal No Oct 19 te 17.5 informati 2017 9:28 distribut on in AM ion width source [Entitic data volume] by Automated count Leukocyte 4.8 - K/MM3 Normal No Oct 19 s 10.8 informati 2017 9:28 [#/volume on in AM ] in source Blood data
--- OUTSIDE RECORDS SUMMARY | 2017-10-19 10:05 | External Medical Summary Rpt | CCD ---
Demographics Preferred Language South African Marital Status Unknown Temple Affiliation Unknown Race Unknown Ethnic Group Unknown Author Author , NANCY CRUZ Address Unknown Phone Immunization No patient found.
--- OUTSIDE RECORDS SUMMARY | 2017-10-19 10:05 | External Medical Summary Rpt | CCD ---
Author Author , NANCY Organization [facility] Address Unknown Phone [email or web address] Purpose Continuity of Care Document - 10-19-2017 [...] 017 K/mm3 ed monocyt 09:28 e count [place] % 10-19-2 = 6.2 % 1.7-9.3 complet [...] SQUARE METERS Comment: If this patient is -[place] Islander, then multiply the Comment: result by 1.210. [...]
[2017-10-19 10:29] LABS: URINE BLOOD 3+ (NEG)
[2017-10-19 10:31] LABS: URINE BILIRUBIN - DIPSTICK NEGATIVE (NEG)
[2017-10-19 10:43] LABS: URINE SQUAMOUS CELLS OCC #/hpf (OCC)
--- NOTE | 2017-10-19 10:56 | RADIOLOGY REPORT PS360 ---
CT ABD PELVIS W/O CONTRAST CLINICAL INDICATION: LT FLANK PAIN ORDERING PHYSICIAN: Nandini Doan MD PATIENT AGE: 32 years COMPARISON: None TECHNIQUE: Axial images obtained with sagittal and coronal reformats. PROCEDURE: Oral Contrast: None IV Contrast: None . FINDINGS: Lower thorax: Extensive calcified lymph nodes are present in the right infrahilar region. ABDOMEN: Liver: Diffuse fatty liver Gallbladder: Nondistended. No radio opaque stones. Pancreas: No masses or peripancreatic fluid collections. Spleen: Unremarkable. Adrenals: Unremarkable Kidneys/ureters: There are punctate bilateral renal calculi measuring up to 1 mm in the mid polar region on the right in the lower pole on the left. There is mild left hydronephrosis and proximal hydroureter secondary to a 2-3 mm stone in the mid left ureter. Stone is at the L3 level. Stomach bowel: Nondistended. No obvious mass or thickening. Appendix: No evidence of appendicitis. PELVIS: Reproductive: Unremarkable Bladder: Nondistended. No obvious stones or masses. ABDOMEN & PELVIS: Peritoneum: No abnormal fluid collections. No obvious inflammatory changes. No free air. There is a tiny umbilical hernia containing fat Lymph nodes: No enlarged lymph nodes apparent. Calcified lymph node is present medial to the inferior vena cava Vasculature: No evidence of abdominal aortic aneurysm. No retroperitoneal hemorrhage evident. Bones: No acute fracture IMPRESSION: 1. 2 to 3 mm left mid ureteral calculus with mild obstructive uropathy. 2. Punctate bilateral renal calculi
[2017-10-19] MEDS ORDERED: FLOMAX0.4 MG PO ×2 (11:12→11:15)
[2017-10-19] MEDS ORDERED: ZOFRAN ODT4 MG PO ×2 (11:12→11:15)
[2017-10-19] MEDS ORDERED: HYDROCODONE/ACE1 TA5 PO (11:15)
[2017-10-19 12:37] VITALS: BP 160/70
== END 2017-10-19 12:38 | disposition home or self-care (01) ==
LOC: ER 09:16
PROVIDERS: Emergency Medicine
DX: N13.2 Hydronephrosis with renal and ureteral calculous obstruction (principal); Z87.442 Personal history of urinary calculi
CPT/HCPCS: J2405

== ENCOUNTER → 2017-10-24 | Outpatient (CLI) | payer OTHER ==
[~2017-10-24] MED LIST changes: +FLOMAX0.4 MG PO; +HYDROCODONE/ACE1 TA5 PO; +ZOFRAN ODT4 MG PO
--- NOTE | 2017-10-24 15:34 | RADIOLOGY REPORT PS360 ---
CT ABD PELVIS W/O CONTRAST CLINICAL INDICATION: Follow-up ureteral stone, obstructive uropathy, flank pain CALCULUS OF URETER ORDERING PHYSICIAN: Leonardo Bolivar MD PATIENT AGE: 32 years COMPARISON: 10/19/2017 TECHNIQUE: Axial images obtained with sagittal and coronal reformats. PROCEDURE: Oral Contrast: None IV Contrast: None . FINDINGS: Extensive calcified nodes are present in the right perihilar region. There is diffuse fatty liver infiltration. Spleen, adrenal glands, and pancreas are unremarkable. There is a left ureteral stent in place. The proximal aspect overlies the left renal pelvis and distal aspect overlies the left aspect of the urinary bladder posteriorly. Small amount of gas is present in the urinary bladder and the upper pole left renal collecting system. A 2 mm stone is present in the lower pole the left kidney. Previously noted left hydronephrosis and hydroureter has resolved. There is no evidence of perinephric fluid collection or significant stranding of the left perinephric or periureteral fat. There is a 3 mm nonobstructing stone in the mid polar region of the right kidney. There are tiny umbilical hernia containing fat. No intestinal obstruction, free air, or focal inflammatory changes evident. IMPRESSION: 1. Interval insertion of left ureteral stent which is in good position. Relieved left hydronephrosis and hydroureter. Small amount gas is present in the left renal collecting system and urinary bladder probably related to the recent instrumentation. 2. Left mid ureteral stone is not apparent. There is a small stone in the lower pole the left kidney and there is a 3 mm nonobstructing stone in the mid polar region of the right kidney.
== END ==
LOC: RAD 14:38
DX: N20.1 Calculus of ureter (principal)